=== PATIENT | female | born 1980 | race Caucasian/White ===

== ENCOUNTER 2016-12-04 09:55 | Emergency (ER) | payer OTHER ==
[2016-12-04 10:47] VITALS: BP 132/97
[2016-12-04] MEDS ORDERED: NS 0.9% 1000 ML* 1,000 ML IV ONE (10:49)
[2016-12-04] MEDS ORDERED: Ketorolac INJ* 30 MG/ML 1 ML VIAL IV PUSH ONE (10:49)
[2016-12-04 11:38] LABS: Hematocrit 39 % (35-47); Hemoglobin 13.1 g/dl (12.0-16.0); Mean Corpuscular HGB Conc 33 g/dl (31-36); Mean Corpuscular Hemoglobin 31 pg (27-31); Mean Corpuscular Volume 92 fL (80-97); Mean Platelet Volume 8 um3 (7.4-10.4); Red Blood Count 4.26 10^6/ul (4.0-5.4); Red Cell Distribution Width 14 % (10.5-15); White Blood Count 4.1 10^3/ul (3.5-10.8)
[2016-12-04 11:42] LABS: Manual Entry Verification JEA0012; UR Preg Internal Control QC Line Present
[2016-12-04 11:50] LABS: Urine Bilirubin Negative (Negative); Urine Glucose Negative (Negative); Urine Nitrite Negative (Negative)
[2016-12-04 11:52] LABS: Albumin 3.9 g/dL (3.2-5.2); BUN/Creatinine Ratio 18.2 (8-20); EGFR African American 109.1 (>60); EGFR Non-African American 84.8 (>60); Globulin 2.8 g/dL (2-4); Potassium 3.6 mmol/L (3.5-5.0); Total Bilirubin 0.7 mg/dL (0.2-1.0); Total Protein 6.7 g/dL (6.4-8.9)
--- NOTE | 2016-12-04 12:19 | RAD ---
Indication: Hematuria. Real-time sonography of the kidneys was performed. The right kidney measures 10.1 x 5.9 x 5.4 cm. No hydronephrosis is noted. Echogenic foci is noted in the lower pole of the right kidney measuring up to 3 mm. The left kidney measures 11.5 x 5.1 x 4.5 cm with no hydronephrosis. Evaluation of the bladder demonstrates bilateral ureteral jets. IMPRESSION: Likely nonobstructing calculi in the lower pole of the right kidney. No hydronephrosis of either kidney is noted. Bilateral ureteral jets are present.
[2016-12-04 14:31] LABS: C Reactive Protein 3.73 mg/L (< 5.00)
--- NOTE | 2016-12-04 16:05 | RAD ---
INDICATION: Bilateral pelvic pain COMPARISON: Similar ultrasound examination dated October 07, [address] abdomen pelvis dated June 27, 2015 TECHNIQUE: Real-time transabdominal and transvaginal ultrasound examination of the female pelvis including grayscale and Doppler color flow imaging. FINDINGS: Uterus: The uterus is normal in size and echogenicity measuring 9.7 x 4.8 x 7.5 cm. The endometrial stripe is smooth and uniform measuring 8 mm in thickness. At the mid-level myometrium there is a well-circumscribed uterine fibroid measuring 1.7 x 1.8 x 1.5 mm. Ovaries: The right and left ovary measure 5.8 x 2.6 x 3.9 cm and 3.2 x 2.6 x 2.8 cm, respectively. Normal arterial and venous waveforms are identified. In the right ovary there is an anechoic and avascular structure with concave margins measuring 3.1 x 1.2 x 2.1 cm that is most consistent with an involuting/collapsing follicle in a woman of this age. There is a small amount of free fluid in the cul-de-sac. IMPRESSION: 1. Sonographic findings could be compatible with recent ovulation. Please correlate to the stage of patient's menstrual cycle. 2. At the posterior myometrium there is a uterine fibroid measuring 1.7 x 1.8 x 1.5 cm that was not visualized on the October 07, 2010 ultrasound.
[2016-12-04] MEDS ORDERED: oxyCODONE/Acetamin 5/325 MG* TAB PO ONE (16:21)
[2016-12-04] MEDS ORDERED: Ondansetron TAB* 4 MG PO ONE (16:21)
--- NOTE | 2016-12-05 22:55 | ED ---
Geronimo Huang SooYoung, scribed for Natanael Hsu MD on 12/04/16 at 1042 . Abdominal Pain/Female - HPI Summary HPI Summary: A 36 y/o F presents with suprapubic abd pain onset today [employer]. Associated sx: diaphoresis, abd cramping, delayed ability to urinate, nausea since resolved. Denies hematuria, dysuria, vaginal discharge. Recent dx of UTI last week, with c /o R flank pain. Pt took her Bactrim and finished the course three days ago. She states no new sexual partners. Pert PMHx: urolithiasis. Pt reports nml menses, is two weeks out from next one. PCP is Dr. Caballero. - History of Current Complaint Chief Complaint: EDAbdPain Stated Complaint: ABD PAIN Time Seen by Provider: 12/04/16 10:01 Hx Obtained From: Patient Hx Last Menstrual Period: 4 wks ago Onset/Duration: Sudden Onset, Lasting Hours, Still Present Timing: Constant Severity Initially: Moderate Severity Currently: Severe Pain Intensity: 9 Pain Scale Used: 0-10 Numeric Location: Suprapubic Character: Cramping Associated Signs and Symptoms: Positive: Diaphoresis, Nausea - resolved, Other: - pos: delayed ability to urinate; neg: hematuria, dysuria,. Negative: Blood in Stool, Vaginal Discharge Allergies/Adverse Reactions: Allergies Allergy/AdvReac Type Severity Reaction Status Date / Time Codeine Allergy Intermediate Nausea And Verified 06/26/15 22:36 Vomiting Latex Allergy Intermediate Rash Verified 06/26/15 22:36 PMH/Surg Hx/FS Hx/Imm Hx Previously Healthy: No Cardiovascular History: Reports: Hx Hypertension - DC'd her own med 4 mos ago History: Reports: Hx Kidney Stones, Hx Renal Disease - Surgical History Surgery Procedure, Year, and Place: 4 C-sections; tubal ligation; tonsillectomy - Immunization History Date of Tetanus Vaccine: None Date of Influenza Vaccine: None Infectious Disease History: Denies: Traveled Outside the [place] in Last 30 Days - Family History Known Family History: Positive: Cardiac Disease Negative: Diabetes - Social History Occupation: Unemployed - HOMEMAKER Lives: With Family Alcohol Use: Occasionally Hx Substance Use: No Substance Use Type: Reports: None Hx Tobacco Use: Yes Smoking Status (MU): Light Every Day Tobacco Smoker Review of Systems Positive: Skin Diaphoresis. Negative: Fever, Chills Negative: Erythema Negative: Sore Throat Negative: Chest Pain Negative: Shortness Of Breath, Cough Positive: Abdominal Pain, Nausea - resolved. Negative: Vomiting Positive: other - pos: delayed ability to urinate. Negative: dysuria, discharge - vaginal, hematuria Negative: Myalgia, Edema Negative: Rash Neurological: Other - neg: dizziness All Other Systems Reviewed And Are Negative: Yes Physical Exam - Summary Physical Exam Summary: Constitutional: Well-developed, Well-nourished, Alert. (-) Distressed Skin: Warm, Dry HENT: Normocephalic; Atraumatic Eyes: Conjunctiva normal Neck: Musculoskeletal ROM normal neck. (-) JVD, (-) Stridor, (-) Tracheal deviation Cardio: Rhythm regular, rate normal, Heart sounds normal; Intact distal pulses; The pedal pulses are 2+ and symmetric. Radial pulses are 2+ and symmetric. (-) Murmur Pulmonary/Chest wall: Effort normal. (-) Respiratory distress, (-) Wheezes, (-) Rales Abd: Soft, (-) Distension, SUPRAPUBIC TENDERNESS Musculoskeletal: (-) Edema Lymph: (-) Cervical adenopathy Neuro: Alert, Oriented x3 Psych: Mood and affect Normal Triage Information Reviewed: Yes Vital Signs On Initial Exam: Initial Vitals Temp Pulse Resp BP Pulse Ox 97 F 83 19 146/82 100 12/04/16 09:56 12/04/16 09:56 12/04/16 09:56 12/04/16 09:56 12/04/16 09:56 Vital Signs Reviewed: Yes Diagnostics - Vital Signs Vital Signs Temp Pulse Resp BP Pulse Ox 12/04/16 10:16 98.3 F 80 16 136/87 100 12/04/16 09:56 97 F 83 19 146/82 100 - Laboratory Result Diagrams: 12/04/16 11:15 12/04/16 11:15 Lab Statement: Any lab studies that have been ordered have been reviewed, and results considered in the medical decision making process. - Ultrasound No standard instances Ultrasound Interpretation: Positive (See Comments) - IMPRESSION: Likely nonobstructing calculi in the lower pole of the right kidney. No hydronephrosis of either kidney is noted. Bilateral ureteral jets are present. Ultrasound Interpretation Completed By: Radiologist - Additional Comments Diagnostic Additional Comments: TRANSVAG U/S IMPRESSION, read by radiologist: 1. Sonographic findings could be compatible with recent ovulation. Please correlate to the stage of patient's menstrual cycle. 2. At the posterior myometrium there is a uterine fibroid measuring 1.7 x 1.8 x 1.5 cm that was not visualized on the October 07, 2010 ultrasound. Re-Evaluation - Re-Evaluation 1 Re-Evaluation Time: 14:10 Change: Improved Comment: Pt states more pain on L-side than R. Denies RLQ tenderness, no suggestion of appy. NURSE TEMO PRESENT FOR PELVIC DURING REEVAL. PELVIC EXAM FOUND BILATERAL ADNEXAL TENDERNESS, NML CERVIX, NO CERVICAL MOTION TENDERNESS. PELVIC CULTURE COLLECTED. 2 Re-Evaluation Time: 16:23 Change: Improved Comment: Pt states she is no longer tender. Will D/C home to follow up with [facility]. 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 Associated sx: diaphoresis, abd cramping, delayed ability to urinate, nausea since resolved. Denies hematuria, dysuria, vaginal discharge. Recent dx of UTI last week, with c/o R flank pain. Pt took her Bactrim and finished the course three days ago. She states no new sexual partners. Pert PMHx: urolithiasis. Pt given fluids and Toradol in ED. Lab results show elevated ALT and AST, elevated monocytes, decreased glucose and lymphocytes. UA results are nml. Renal U/S shows "Likely nonobstructing calculi in the lower pole of the right kidney. No hydronephrosis of either kidney is noted. Bilateral ureteral jets are present." Transvaginal U/S found "1. Sonographic findings could be compatible with recent ovulation. Please correlate to the stage of patient's menstrual cycle. 2. At the posterior myometrium there is a uterine fibroid measuring 1.7 x 1.8 x 1.5 cm that was not visualized on the October 07, 2010 ultrasound.". Will D/C home with Motrin, Tramadol, f/u with [facility]ST[facility] in the next few days. - Diagnoses Provider Diagnoses: Mittelschmerz, Uterine fibroid Discharge - Discharge Plan Condition: Stable Disposition: HOME Prescriptions: Ibuprofen TAB* [Motrin TAB* 600 MG] 600 mg PO Q6H PRN #40 tab PRN Reason: Pain - Moderate To Severe Ondansetron ODT TAB* [Zofran 4 MG Odt TAB*] 4 mg PO Q6H PRN #12 tab.odt PRN Reason: Nausea/Vomiting traMADol TAB* [Ultram*] 25 mg PO Q6HR PRN #12 tab MDD 4 PRN Reason: Pain - Moderate To Severe Patient Education Materials: Ibuprofen (By mouth), Tramadol (By mouth), Mittelschmerz (ED), Uterine Fibroids (ED) Referrals: Maris Salmeron MD [Medical Doctor] - 3 Days (Follow up with Dr. Salmeron, [facility] INST[facility], in the next few days.) Juan Cooper MD [Primary Care Provider] - Additional Instructions: Follow up with [facility]ST[facility] in the next few days. Return to the emergency department for changing or worsening or persistent symptoms. The documentation as recorded by the Geronimo mead SooYoung accurately reflects the service I personally performed and the decisions made by , Natanael Hsu MD.
== END 2016-12-04 17:08 | disposition home or self-care (01) ==
LOC: ED 09:55
DX: N94.0 Mittelschmerz (principal); D25.9 Leiomyoma of uterus, unspecified; R11.0 Nausea
CPT/HCPCS: 36415; 76775; 76830; 80053; 81003; 81025; 83605; 83690; 85025; 86140; 87480; 87510; 87661; 99283; A9270-GY; J1885

== ENCOUNTER 2017-05-06 19:48 | Emergency (ER) | payer OTHER ==
[2017-05-06] MEDS ORDERED: hydrOXYzine HCL TAB* 50 MG PO ONE (20:20)
[2017-05-06] MEDS ORDERED: predniSONE TAB* 20 MG PO ONE (20:20)
--- NOTE | 2017-05-06 20:26 | ED ---
Andrews Huang Thomas, scribed for Daniel Ash MD on 05/06/17 at 2024 . Skin Complaint - HPI Summary HPI Summary: The pt is a 36 y/o F presenting to the ED c/o an erythematous rash to her left upper medial arm that she first noticed today at 04:00. The pain is described as burning and pruritus. The pain is constant. The pain is rated 2/10. The patient has been measuring the rash with a ruler, and it has been growing progressively. In the ED, it measures about 10cm in diameter. Pt additionally c/ o a small rash on her left forearm. - History of Current Complaint Chief Complaint: EDRashSkinAbscess Time Seen by Provider: 05/06/17 20:08 Stated Complaint: RASH/LT ARM Hx Obtained From: Patient Hx Last Menstrual Period: 4 wks ago Onset/Duration: Started Hours Ago - today at 04:00, Still Present, Worse Since - progressively Timing: Constant Current Severity: Mild Pain Intensity: 2 Pain Scale Used: 0-10 Numeric Skin Location: Other: - Left arm Character: Pruritus, Pain Aggravating Symptom(s): Nothing Alleviating Symptom(s): Nothing - Allergy/Home Medications Allergies/Adverse Reactions: Allergies Allergy/AdvReac Type Severity Reaction Status Date / Time Codeine Allergy Intermediate Nausea And Verified 05/06/17 19:58 Vomiting Latex Allergy Intermediate Rash Verified 05/06/17 19:58 PMH/Surg Hx/FS Hx/Imm Hx Previously Healthy: No Endocrine/Hematology History: Denies: Hx Diabetes Cardiovascular History: Reports: Hx Hypertension - DC'd her own med 4 mos ago History: Reports: Hx Kidney Stones, Hx Renal Disease Musculoskeletal History: Denies: Hx Osteoporosis - Surgical History Surgery Procedure, Year, and Place: 4 C-sections; tubal ligation; tonsillectomy - Immunization History Date of Tetanus Vaccine: None Date of Influenza Vaccine: None Infectious Disease History: No Infectious Disease History: Denies: Traveled Outside the [place] in Last 30 Days - Family History Known Family History: Positive: Cardiac Disease Negative: Diabetes - Social History Alcohol Use: Occasionally Hx Substance Use: No Substance Use Type: Reports: None Hx Tobacco Use: Yes Smoking Status (MU): Light Every Day Tobacco Smoker Review of Systems Negative: Fever Positive: Other - Rash on left arm All Other Systems Reviewed And Are Negative: Yes Physical Exam - Summary Physical Exam Summary: VITAL SIGNS: Reviewed. GENERAL: Patient is a well-developed and nourished female who is lying comfortable in the stretcher. Patient is not in any acute respiratory distress. HEAD AND FACE: No signs of trauma. No ecchymosis, hematomas or skull depressions. No sinus tenderness. EYES: PERRLA, EOMI x 2, No injected conjunctiva, no nystagmus. EARS: Hearing grossly intact. Ear canals and tympanic membranes are within normal limits. MOUTH: Oropharynx within normal limits. NECK: Supple, trachea is midline, no adenopathy, no JVD, no carotid bruit, no c- spine tenderness, neck with full ROM. CHEST: Symmetric, no tenderness at palpation LUNGS: Clear to auscultation bilaterally. No wheezing or crackles. CVS: Regular rate and rhythm, S1 and S2 present, no murmurs or gallops appreciated. ABDOMEN: Soft, non-tender. No signs of distention. No rebound no guarding, and no masses palpated. Bowel sounds are normal. EXTREMITIES: FROM in all major joints, no edema, no cyanosis or clubbing. NEURO: Alert and oriented x 3. No acute neurological deficits. Speech is normal and follows commands. SKIN: Dry and warm. There is a small area of maculopapular rash on the patient' s left upper medial arm. There is also a small area on the left forearm. It is nontender and warm. Triage Information Reviewed: Yes Vital Signs On Initial Exam: Initial Vitals Temp Pulse Resp BP Pulse Ox 98 F 93 16 143/108 97 05/06/17 19:56 05/06/17 19:56 05/06/17 19:56 05/06/17 19:56 05/06/17 19:56 Vital Signs Reviewed: Yes - [place] Coma Scale Coma Scale Total: 15 Diagnostics - Vital Signs Vital Signs Temp Pulse Resp BP Pulse Ox 05/06/17 19:56 98 F 93 16 143/108 97 - Laboratory Lab Statement: Any lab studies that have been ordered have been reviewed, and results considered in the medical decision making process. Course/Dx - Course Assessment/Plan: The pt is a 36 y/o F presenting to the ED c/o an erythematous rash to her left upper medial arm that she first noticed today at 04:00. The pain is described as burning and pruritus. The pain is constant. The pain is rated 2/10. The patient has been measuring the rash with a ruler, and it has been growing progressively. In the ED, it measures about 10cm in diameter. Pt additionally c/o a small rash on her left forearm. The patient has a local allergic reaction. I treated this with antihistamines and steroids. - Diagnoses Provider Diagnoses: Local allergic reaction, Possible insect bite Discharge - Discharge Plan Condition: Stable Disposition: HOME Referrals: Frank Caballero MD [Primary Care Provider] - The documentation as recorded by the Andrews mead Thomas accurately reflects the service I personally performed and the decisions made by me, Daniel Ash MD.
[2017-05-06 20:58] VITALS: BP 143/107
== END 2017-05-06 20:59 | disposition home or self-care (01) ==
LOC: ED 19:48
DX: T78.40XA Allergy, unspecified, initial encounter (principal); Z72.0 Tobacco use; Z88.5 Allergy status to narcotic agent
CPT/HCPCS: A9270-GY; J7512

== ENCOUNTER 2017-06-13 19:15 | Emergency (ER) | payer OTHER ==
[2017-06-13 19:30] VITALS: BP 147/96
--- NOTE | 2017-06-13 19:44 | UC ---
Respiratory Complaint HPI - HPI Summary HPI Summary: Patient presents with three day onset cough, chest congestion and chest discomfort that occurs with the coughing. She denies any chest pain at any other time. She denies any dyspnea, weakness, diaphoresis. She denies any ear, throat, abdominal pain, nausea, vomiting, diarrhea, joint pain or rashes, recent travel or ill contact. s - History of Current Complaint Chief Complaint: UCGeneralIllness Stated Complaint: CONGESTION Time Seen by Provider: 06/13/17 19:25 Hx Obtained From: Patient Hx Last Menstrual Period: current ?: No Onset/Duration: Gradual Onset, Lasting Days Timing: Constant Severity Initially: Mild Severity Currently: Mild Character: Cough: Productive Aggravating Factors: Deep Breaths, Recumbent Position Alleviating Factors: Upright Position, Spontaneous Resolution Associated Signs And Symptoms: Positive: Pleuritic Chest Pain, URI, Nasal Congestion, Sinus Discomfort - Risk Factors Pulmonary Embolism Risk Factors: Negative Cardiac Risk Factors: Negative Pseudomonas Risk Factors: Negative Tuberculosis Risk Factors: Negative - Allergies/Home Medications Allergies/Adverse Reactions: Allergies Allergy/AdvReac Type Severity Reaction Status Date / Time Codeine Allergy Intermediate Nausea And Verified 06/13/17 19:30 Vomiting Latex Allergy Intermediate Rash Verified 06/13/17 19:30 Home Medications: Home Medications Gabapentin [Neurontin 800 mg tab] 800 mg PO TID 06/13/17 [History Confirmed ] Ramipril CAP* [Altace CAP*] 5 mg PO DAILY 06/13/17 [History Confirmed 06/13/17] Sertraline* [Zoloft*] 50 mg PO DAILY 06/13/17 [History Confirmed 06/13/17] PMH/Surg Hx/FS Hx/Imm Hx Previously Healthy: Yes - Surgical History Surgical History: Yes Surgery Procedure, Year, and Place: 4 C-sections; tubal ligation; tonsillectomy - Family History Known Family History: Positive: Cardiac Disease Negative: Diabetes - Social History Occupation: Employed Full-time Lives: Alone Alcohol Use: Occasionally Substance Use Type: None Smoking Status (MU): Light Every Day Tobacco Smoker - Immunization History Most Recent Influenza Vaccination: 2016 Review of Systems Constitutional: Negative Skin: Negative Eyes: Negative ENT: Ear Ache, Nasal Discharge, Sinus Congestion, Sinus Pain/Tenderness Respiratory: Negative Cardiovascular: Negative Gastrointestinal: Negative Genitourinary: Negative Motor: Negative Neurovascular: Negative Musculoskeletal: Negative Neurological: Negative Psychological: Negative Is Patient Immunocompromised?: No All Other Systems Reviewed And Are Negative: Yes Physical Exam Triage Information Reviewed: Yes Appearance: Ill-Appearing Vital Signs: Initial Vital Signs Temp 98.2 F 06/13/17 19:24 Pulse 79 06/13/17 19:24 Resp 22 06/13/17 19:24 BP 147/96 06/13/17 19:24 Pulse Ox 98 06/13/17 19:24 Vital Signs Reviewed: Yes Eye Exam: Normal ENT: Positive: Pharyngeal erythema, Nasal congestion, Nasal drainage, Sinus tenderness Neck exam: Normal Neck: Positive: 1 Respiratory Exam: Normal Respiratory: Positive: Rhonchi, Other: - persistent course coughing noted on exam . Cardiovascular Exam: Normal Cardiovascular: Positive: RRR, No Murmur Abdominal Exam: Normal Skin Exam: Normal UC Diagnostic Evaluation - Laboratory O2 Sat by Pulse Oximetry: 98 Respiratory Course/Dx - Course Course Of Treatment: Patient presents with three day onset progressively worsening cough, chest congestion and reproducible chest pain that only occurs when she coughs. She presents with VSS, nontoxic appearance, and in no significant respiratory distess other than coughing. She presents clincially with acute bronchitis, and was treated with augmentin, albuerol, and tesselon perles. I have taken her out of work for three days to rest and hopfully recover if for any reason she has nt ot improved as anticiapted I told her to betsy wasserman with her PCP, she verbalzied understanding and was in agreement with the discharge plan. - Differential Dx/Diagnosis Differential Diagnosis/HQI/PQRI: Bronchitis Provider Diagnoses: bronchitis Discharge - Discharge Plan Condition: Stable Disposition: HOME Prescriptions: Albuterol HFA INHALER* [Ventolin HFA Inhaler*] 1 puff INH Q4H PRN #1 mdi PRN Reason: bronchitis Amoxicillin/Clavulanate TAB* [Augmentin TAB 500 mg*] 500 mg PO BID #20 tab Benzonatate [TESSALON 200 MG CAP] 200 mg PO TID #14 cap Patient Education Materials: Acute Bronchitis (ED) Forms: *Work Release Referrals: Frank Caballero MD [Primary Care Provider] -
== END 2017-06-13 19:47 | disposition home or self-care (01) ==
LOC: UCEAST 19:15
DX: J40 Bronchitis, not specified as acute or chronic (principal); F17.290 Nicotine dependence, other tobacco product, uncomplicated; Z88.5 Allergy status to narcotic agent; Z91.040 Latex allergy status
CPT/HCPCS: 99212; G0463

== ENCOUNTER 2017-07-07 10:10 | Emergency (ER) | payer OTHER ==
[2017-07-07] MEDS ORDERED: NS 0.9% 1000 ML* 1,000 ML IV ONE (11:10)
[2017-07-07] MEDS ORDERED: Ondansetron INJ* 2 MG/ML VIAL IV ONE (11:10)
--- NOTE | 2017-07-07 11:18 | ED ---
Abdominal Pain/Female - HPI Summary HPI Summary: (1 ectopic) pt here w/ diffuse ab soreness/cramping x 5 days. Started on Sunday with cramping - had nausea, diarrhea, subjective fevers - has only had 1 x vomiting. Sx seemed to improve 2 days ago however returned again yesterday and reports she was "moaning" in bed all night in discomfort. Pain and nausea w / standing/walking around. Has some chest pain with deep breath intermittently as well - denies SOB, cough, rhinorrhea, ST, otalgia, WATSON, neck pain/stiffness, rash. No urinary or vaginal sx. Son at home has had vomiting last Sunday - resolved. Pt received influenza vaccine. LMP - on this now - does not feel cramps today are same as menstrual cramps. H/ o tubal ligation and 4 c-sections. Sexually active - unprotected - 1 partner - no concerns for STD's at this time. - History of Current Complaint Chief Complaint: EDAbdPain Stated Complaint: CRAMPS Time Seen by Provider: 07/07/17 10:42 Hx Obtained From: Patient Hx Last Menstrual Period: current Pain Intensity: 8 Allergies/Adverse Reactions: Allergies Allergy/AdvReac Type Severity Reaction Status Date / Time Codeine Allergy Intermediate Nausea And Verified 06/13/17 19:30 Vomiting Latex Allergy Intermediate Rash Verified 06/13/17 19:30 PMH/Surg Hx/FS Hx/Imm Hx Previously Healthy: Yes Endocrine/Hematology History: Denies: Hx Anticoagulant Therapy, Hx Blood Disorders, Hx Diabetes, Hx Thyroid Disease, Hx Anemia, Autoimmune Disease Cardiovascular History: Reports: Hx Hypertension - takes ramipril daily Respiratory History: Denies: Hx Asthma GI History: Denies: Hx Cirrhosis, Hx Crohn's Disease, Hx Diverticulosis, Hx Gall Bladder Disease, Hx Gastroesophageal Reflux Disease, Hx Gastrointestinal Bleed, Hx Hiatal Hernia, Hx Irritable Bowel, Hx Ulcer History: Reports: Hx Kidney Stones, Hx Renal Disease Musculoskeletal History: Denies: Hx Osteoporosis Sensory History: Reports: Hx Contacts or Glasses Opthamlomology History: Reports: Hx Contacts or Glasses - Surgical History Surgery Procedure, Year, and Place: 4 C-sections; tubal ligation; tonsillectomy - Immunization History Date of Tetanus Vaccine: None Date of Influenza Vaccine: None Infectious Disease History: No Infectious Disease History: Denies: Traveled Outside the [place] in Last 30 Days - Family History Known Family History: Positive: Cardiac Disease Negative: Diabetes - Social History Alcohol Use: Occasionally Hx Substance Use: No Substance Use Type: Reports: None Hx Tobacco Use: Yes Smoking Status (MU): Light Every Day Tobacco Smoker Review of Systems Positive: Fever Eyes: Negative ENT: Negative Cardiovascular: Negative Respiratory: Negative Positive: Abdominal Pain, Diarrhea, Nausea Positive: see HPI Musculoskeletal: Negative Skin: Negative Neurological: Negative Psychological: Normal All Other Systems Reviewed And Are Negative: Yes Physical Exam Triage Information Reviewed: Yes Vital Signs On Initial Exam: Initial Vitals Temp Pulse Resp BP Pulse Ox 98.0 F 73 17 176/100 100 07/07/17 10:12 07/07/17 10:12 07/07/17 10:12 07/07/17 10:12 07/07/17 10:12 Vital Signs Reviewed: Yes Appearance: Positive: Well-Appearing, No Pain Distress, Well-Nourished Skin: Positive: Warm, Skin Color Reflects Adequate Perfusion, Dry Head/Face: Positive: Normal Head/Face Inspection Eyes: Positive: Normal, EOMI, Conjunctiva Clear - anicteric sclera ENT: Positive: Normal ENT inspection, Hearing grossly normal, Pharynx normal - mucosa moist. Negative: Nasal congestion, Nasal drainage Neck: Positive: Supple, Nontender - no gross thyromegaly Respiratory/Lung Sounds: Positive: Clear to Auscultation, Breath Sounds Present. Negative: Rales, Rhonchi, Wheezes Cardiovascular: Positive: Normal, RRR, S1, S2 Abdomen Description: Positive: Nontender, No Organomegaly, Soft, Distended - RLQ. Negative: CVA Tenderness (R), CVA Tenderness (L), Guarding Bowel Sounds: Positive: Present Musculoskeletal: Positive: Normal, Strength/ROM Intact Neurological: Positive: Normal, Sensory/Motor Intact, Alert, Oriented to Person Place, Time, CN Intact II-III Psychiatric: Positive: Normal - CONCERNED BUT COOPERATIVE - Diane Coma Scale Coma Scale Total: 15 Diagnostics - Vital Signs Vital Signs Temp Pulse Resp BP Pulse Ox 07/07/17 10:12 98.0 F 73 17 176/100 100 - Laboratory Result Diagrams: 07/07/17 11:15 07/07/17 11:15 Lab Statement: Any lab studies that have been ordered have been reviewed, and results considered in the medical decision making process. Re-Evaluation - Re-Evaluation First Eval Change: Improved - pain reduced - no nausea since here Abdominal Pain Fem Course/Dx - Course Course Of Treatment: Pt presents w/ ab cramping after 5 days of N/V/D. Inproved w/ IVF and zofran and labs indicate she's most likely recently fought an infection. She will be d/c'd w/ dietary guidelines and danger s/sx of when to return to ED. Pt agrees w/ plan. - Diagnoses Provider Diagnoses: Gastroenteritis, Abdominal cramping Discharge - Discharge Plan Condition: Stable Disposition: HOME Patient Education Materials: Gastroenteritis (ED), Dehydration (ED) Forms: *Work Release Referrals: Frank Caballero MD [Primary Care Provider] - Additional Instructions: Rest, fluids, bland diet (ie. water, gatorade, broth - bananas, rice, applesauce , toast) If symptoms return in full effect and/or you develop fever, chills, chest pain, shortness of breath, vaginal symtpoms or pelvic pain, return to ED Otherwise, follow-up with PCP as needed
[2017-07-07 11:29] LABS: ABS Basophils 0 10^3/ul (0-0.2); ABS Eosinophils 0 10^3/ul (0-0.6); ABS Lymphocytes 0.4 10^3/ul (1.0-4.8); ABS Monocytes 0.3 10^3/ul (0-0.8); ABS Neutrophils 1.8 10^3/ul (1.5-7.7); ABS Nucleated RBC 0 10^3/ul; Eosinophil % 0.4 % (0-6); Hematocrit 40 % (35-47); Hemoglobin 13.8 g/dl (12.0-16.0); Lymphocyte % 14.7 % (25-47); Mean Corpuscular HGB Conc 34 g/dl (31-36); Mean Corpuscular Hemoglobin 33 pg (27-31); Mean Corpuscular Volume 95 fL (80-97); Mean Platelet Volume 7 um3 (7.4-10.4); Nucleated Red Blood Cells % 0.2; Platelet Count 145 10^3/ul (150-450); Red Blood Count 4.24 10^6/ul (4.0-5.4); Red Cell Distribution Width 13 % (10.5-15); White Blood Count 2.6 10^3/ul (3.5-10.8)
[2017-07-07 11:46] LABS: EGFR Non-African American 92.6 (>60)
[2017-07-07 14:05] VITALS: BP 120/83
== END 2017-07-07 14:04 | disposition home or self-care (01) ==
LOC: ED 10:10
DX: R10.9 Unspecified abdominal pain (principal); R19.7 Diarrhea, unspecified; R11.0 Nausea; F17.210 Nicotine dependence, cigarettes, uncomplicated; K52.9 Noninfective gastroenteritis and colitis, unspecified
CPT/HCPCS: 36415; 80053; 83605; 83690; 83735; 84702; 85025; 86140; 87502; 96361; 96374; 99283; J2405

== ENCOUNTER 2017-08-04 03:37 | Emergency (ER) | payer SELFPAY ==
[2017-08-04] MEDS ORDERED: ALPRAZolam TAB* 0.5 MG PO ONE (03:58)
[2017-08-04 05:00] LABS: ABS Basophils 0 10^3/ul (0-0.2); ABS Eosinophils 0 10^3/ul (0-0.6); ABS Lymphocytes 1.1 10^3/ul (1.0-4.8); ABS Monocytes 0.5 10^3/ul (0-0.8); ABS Neutrophils 3.3 10^3/ul (1.5-7.7); ABS Nucleated RBC 0 10^3/ul; Eosinophil % 0.1 % (0-6); Hematocrit 44 % (35-47); Lymphocyte % 22.5 % (25-47); Mean Corpuscular HGB Conc 34 g/dl (31-36); Mean Corpuscular Hemoglobin 32 pg (27-31); Mean Corpuscular Volume 95 fL (80-97); Mean Platelet Volume 7 um3 (7.4-10.4); Nucleated Red Blood Cells % 0.1; Platelet Count 183 10^3/ul (150-450); Red Blood Count 4.64 10^6/ul (4.0-5.4); Red Cell Distribution Width 13 % (10.5-15); White Blood Count 4.9 10^3/ul (3.5-10.8)
[2017-08-04 05:15] LABS: EGFR Non-African American 84.4 (>60)
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
[2017-08-04 06:19] VITALS: BP 111/67
[2017-08-04] MEDS ORDERED: Ondansetron ODT TAB* 4 MG PO ONE (08:18)
[2017-08-04] MEDS ORDERED: Acetaminophen ADULT LIQ* 650 MG/20.3 ML UDC PO ONE (08:19)
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
== END 2017-08-04 08:49 | disposition home or self-care (01) ==
LOC: ED 03:37
DX: F10.129 Alcohol abuse with intoxication, unspecified (principal); S80.212A Abrasion, left knee, initial encounter; S80.211A Abrasion, right knee, initial encounter; S50.312A Abrasion of left elbow, initial encounter; S50.311A Abrasion of right elbow, initial encounter; S60.512A Abrasion of left hand, initial encounter; S60.511A Abrasion of right hand, initial encounter; Y04.0XXA Assault by unarmed brawl or fight, initial encounter; Y92.039 Unspecified place in apartment as the place of occurrence of the external cause; Z88.5 Allergy status to narcotic agent
CPT/HCPCS: 36415; 80053; 80320; 80329; 84443; 84702; 85025; 99282; A9270-GY; G0480

== ENCOUNTER 2017-08-10 18:06 | Emergency (ER) | payer OTHER ==
[2017-08-10 18:47] VITALS: BP 114/79
--- NOTE | 2017-08-10 19:12 | UC ---
Skin Complaint HPI - HPI Summary HPI Summary: 37 yo WF presents with ?infection to right hand. She tells me that she fell on the pavement about 1 week ago and scraped her right knuckles in the process. She noticed over the last 2 days that two area at the base of her dorsal pinky and ring finger have been draining green discharge, are TTP, and are swollen. She has been keeping them covered and applying triple antibiotic ointment daily. Denies numbness, tingling, decreased ROM, or stiffness. - History of Current Complaint Chief Complaint: UCUpperExtremity Time Seen by Provider: 08/10/17 19:06 Stated Complaint: HAND COMPLAINT Hx Obtained From: Patient Hx Last Menstrual Period: 07/10/17 Onset/Duration: Sudden Onset Skin Exposure Onset/Duration: Days Ago Timing: Constant Onset Severity: Moderate Current Severity: Moderate Pain Intensity: 6 Pain Scale Used: 0-10 Numeric - Allergy/Home Medications Allergies/Adverse Reactions: Allergies Allergy/AdvReac Type Severity Reaction Status Date / Time codeine Allergy Nausea And Verified 08/04/17 08:19 Vomiting latex Allergy Rash Verified 08/04/17 08:19 Review of Systems Constitutional: Negative Skin: Other - wound right hand Respiratory: Negative Cardiovascular: Negative Motor: Negative Neurovascular: Negative Musculoskeletal: Negative Neurological: Negative Psychological: Negative All Other Systems Reviewed And Are Negative: Yes PMH/Surg Hx/FS Hx/Imm Hx Previously Healthy: Yes Psychological History: Anxiety Other History Of: Negative For: Anticoagulant Therapy - Surgical History Surgical History: Yes Surgery Procedure, Year, and Place: 4 C-sections; tubal ligation; tonsillectomy - Family History Known Family History: Positive: Cardiac Disease Negative: Diabetes - Social History Alcohol Use: Occasionally Substance Use Type: None Smoking Status (MU): Light Every Day Tobacco Smoker - Immunization History Most Recent Influenza Vaccination: 2017 Most Recent Tetanus Shot: 2 years ago Physical Exam Triage Information Reviewed: Yes Appearance: Well-Appearing, No Pain Distress, Well-Nourished Vital Signs: Initial Vital Signs Temp 98.2 F 08/10/17 18:43 Pulse 85 08/10/17 18:43 Resp 16 08/10/17 18:43 BP 114/79 08/10/17 18:43 Pulse Ox 99 08/10/17 18:43 Vital Signs Reviewed: Yes Neck: Positive: Supple, Nontender Respiratory: Positive: Lungs clear, Normal breath sounds, No respiratory distress Cardiovascular: Positive: RRR, No Murmur, Pulses Normal Musculoskeletal: Positive: Strength Intact - Right hand and all fingers, ROM Intact - Right hand and all fingers, No Edema - Right hand and all fingers Neurological: Positive: Alert, Other: - Sensations intact Right hand and all fingers Psychological: Positive: Age Appropriate Behavior Skin: Positive: Other - At the 4th and 5th MCP joint there are two ~4mm abrasions with green purulent discharge and crusting. TTP. Surrounding mild erythema. No streaking or edema. Course/Dx - Course Course Of Treatment: Abrasion to right hand appears to have become infected. Will cover her with augmentin. - Diagnoses Provider Diagnoses: Wound infection right hand Discharge - Discharge Plan Condition: Stable Disposition: HOME Prescriptions: Amoxicillin/Clavulanate TAB* [Augmentin TAB 875*] 875 mg PO BID #20 tab Fluconazole 100 MG TAB* [Diflucan 100 MG TAB*] 100 mg PO DAILY #1 tab Patient Education Materials: Wound Infection (DC) Forms: *Work Release Referrals: Frank Caballero MD [Primary Care Provider] - Additional Instructions: If you develop a fever, shortness of breath, chest pain, new or worsening symptoms - please call your PCP or go to the ED.
== END 2017-08-10 19:23 | disposition home or self-care (01) ==
LOC: UCEAST 18:06
DX: S60.511A Abrasion of right hand, initial encounter (principal); L08.9 Local infection of the skin and subcutaneous tissue, unspecified; W18.30XA Fall on same level, unspecified, initial encounter; Y93.9 Activity, unspecified; Y92.480 Sidewalk as the place of occurrence of the external cause; F41.9 Anxiety disorder, unspecified; Z88.5 Allergy status to narcotic agent; Z91.040 Latex allergy status; F17.210 Nicotine dependence, cigarettes, uncomplicated
CPT/HCPCS: 87070; 87205; 99212; G0463

== ENCOUNTER 2018-11-22 18:49 | Emergency (ER) | payer BC, OTHER ==
[2018-11-22] MEDS ORDERED: HYDROcodone/ACETAMIN 5-325 MG* 1 TAB PO ONE (19:10)
[2018-11-22] MEDS ORDERED: Ondansetron ODT TAB* 4 MG PO ONE (19:10)
--- NOTE | 2018-11-22 19:23 | ED ---
Lower Extremity - HPI Summary HPI Summary: 38 year old female presents with right foot injury today. She states that she was playing baseball and then rolling her ankle. She is pain over the fifth metatarsal. She is able to ambulate with pain. No numbness or tingling. No ankle pain or other injury. States she took some ibuprofen with no relief. - History of Current Complaint Chief Complaint: EDExtremityLower Stated Complaint: RT FOOT INJURY PER PT Time Seen by Provider: 11/22/18 19:03 Hx Last Menstrual Period: 07/10/17 Pain Intensity: 7 - Allergies/Home Medications Allergies/Adverse Reactions: Allergies Allergy/AdvReac Type Severity Reaction Status Date / Time codeine Allergy Nausea And Verified 11/22/18 19:00 Vomiting latex Allergy Rash Verified 11/22/18 19:00 Home Medications: Home Medications Atenolol TAB* [Tenormin TAB* 25 MG] 25 mg PO DAILY 11/22/18 [History Confirmed 11/22/18] hydrOXYzine HCL TAB* [Atarax 25 MG TAB*] 25 mg PO TID PRN 11/22/18 [History Confirmed 11/22/18] traMADol TAB* [Ultram*] 1 tab PO TID PRN 11/22/18 [History Confirmed 11/22/18] PMH/Surg Hx/FS Hx/Imm Hx Endocrine/Hematology History: Denies: Hx Anticoagulant Therapy, Hx Blood Disorders, Hx Diabetes, Hx Thyroid Disease, Hx Anemia Cardiovascular History: Reports: Hx Hypertension Respiratory History: Denies: Hx Asthma GI History: Denies: Hx Cirrhosis, Hx Crohn's Disease, Hx Diverticulosis, Hx Gall Bladder Disease, Hx Gastroesophageal Reflux Disease, Hx Gastrointestinal Bleed, Hx Hiatal Hernia, Hx Irritable Bowel, Hx Ulcer History: Reports: Hx Kidney Stones, Hx Renal Disease Musculoskeletal History: Denies: Hx Osteoporosis Sensory History: Reports: Hx Contacts or Glasses Opthamlomology History: Reports: Hx Contacts or Glasses - Surgical History Surgery Procedure, Year, and Place: 4 C-sections; tubal ligation; tonsillectomy - Immunization History Date of Tetanus Vaccine: None Date of Influenza Vaccine: None Infectious Disease History: No Infectious Disease History: Denies: Traveled Outside the [place] in Last 30 Days - Family History Known Family History: Positive: Cardiac Disease Negative: Diabetes - Social History Alcohol Use: Occasionally Hx Substance Use: No Substance Use Type: Reports: None Hx Tobacco Use: Yes Smoking Status (MU): Light Every Day Tobacco Smoker Review of Systems Negative: Fever Negative: Chest Pain Negative: Shortness Of Breath Positive: Myalgia - right foot pain All Other Systems Reviewed And Are Negative: Yes Physical Exam Triage Information Reviewed: Yes Vital Signs On Initial Exam: Initial Vitals Temp Pulse Resp BP Pulse Ox 97.5 F 83 15 131/93 100 11/22/18 18:58 11/22/18 18:58 11/22/18 18:58 11/22/18 18:58 11/22/18 18:58 Vital Signs Reviewed: Yes Appearance: Positive: Well-Appearing Skin: Positive: Warm, Dry Head/Face: Positive: Normal Head/Face Inspection Eyes: Positive: Normal, Conjunctiva Clear ENT: Positive: Pharynx normal Respiratory/Lung Sounds: Positive: Clear to Auscultation, Breath Sounds Present Cardiovascular: Positive: Normal, RRR Musculoskeletal: Positive: Limited @ - right foot, Edema Right - foot lateral, Other - good pulses, capillary refill<2 secs Neurological: Positive: Normal Psychiatric: Positive: Normal Diagnostics - Vital Signs Vital Signs Temp Pulse Resp BP Pulse Ox 11/22/18 18:58 97.5 F 83 15 131/93 100 - Laboratory Lab Statement: Any lab studies that have been ordered have been reviewed, and results considered in the medical decision making process. - Radiology foot Radiology Interpretation Completed By: ED Physician Summary of Radiographic Findings: no fracture Lower Extremity Course/Dx - Course Course Of Treatment: 38 year old female presents with right foot injury today. She states that she was playing baseball and then rolling her ankle. She is pain over the fifth metatarsal. She is able to ambulate with pain. No numbness or tingling. No ankle pain or other injury. States she took some ibuprofen with no relief. On exam edema noted to the lateral aspect of right foot. Nontender ankle. Neurovascular intact. X-ray read by me as normal. gave donell and crutches. explained xrays will be re-read in morning if missed something. told follow up with primary. patient understand and agrees with plan. - Diagnoses Differential Diagnosis/HQI/PQRI: Positive: Fracture (Closed), Sprain, Strain Provider Diagnoses: Right foot injury Discharge - Sign-Out/Discharge Documenting (check all that apply): Patient Departure Patient Received Moderate/Deep Sedation with Procedure: No - Discharge Plan Condition: Good Disposition: HOME Patient Education Materials: Foot Sprain (ED) Forms: *Work Release Referrals: Frank Caballero MD [Medical Doctor] - Additional Instructions: Wear hard sole shoes Ice, elevate, use donell on the area Take Tylenol or ibuprofen for pain every 6 hours as needed Follow up with primary if no improvement Return to ED if develop or any new or worsening symptoms - Billing Disposition and Condition Condition: GOOD Disposition: Home
[2018-11-22 20:09] VITALS: BP 131/90
== END 2018-11-22 20:08 | disposition home or self-care (01) ==
LOC: ED 18:49
DX: S99.921A Unspecified injury of right foot, initial encounter (principal); X50.9XXA Other and unspecified overexertion or strenuous movements or postures, initial encounter; X50.0XXA Overexertion from strenuous movement or load, initial encounter; Y93.64 Activity, baseball; Y92.9 Unspecified place or not applicable; F17.210 Nicotine dependence, cigarettes, uncomplicated; Z87.442 Personal history of urinary calculi; Z88.6 Allergy status to analgesic agent
CPT/HCPCS: 99282; A9270-GY

== ENCOUNTER 2019-03-29 07:48 | Emergency (ER) | payer BC ==
--- NOTE | 2019-03-29 08:15 | ED ---
Abdominal Pain/Female - HPI Summary HPI Summary: 38 year old F presenting to [facility] complains of left abdominal pain, left flank pain, and bladder pain described as long waves of cramping since waking up at 04 :00 today 03/29/19. Patient states she urinated this morning [employer]. She denies dysuria. The patient rates the pain 8/10 in severity. Symptoms aggravated by nothing. Symptoms alleviated by heat. Hx kidney stones. - History of Current Complaint Chief Complaint: EDAbdPain Stated Complaint: ABD PAIN PER PT Time Seen by Provider: 03/29/19 08:04 Hx Obtained From: Patient Onset/Duration: Lasting Hours - 4, Still Present Timing: Constant Severity Currently: Severe Pain Intensity: 8 Pain Scale Used: 0-10 Numeric Location: Discrete At: LUQ, Discrete At: LLQ, Flank - left Character: Cramping Aggravating Factor(s): Nothing Alleviating Factor(s): Other: - heat Associated Signs and Symptoms: Positive: Negative - dysuria Allergies/Adverse Reactions: Allergies Allergy/AdvReac Type Severity Reaction Status Date / Time codeine Allergy Mild Nausea And Verified 03/29/19 11:14 Vomiting latex Allergy Mild Rash Verified 03/29/19 11:14 Home Medications: Home Medications Atenolol 50 mg PO DAILY 03/29/19 [History Confirmed 03/29/19] Cyclobenzaprine (NF) [Cyclobenzaprine 5 MG (NF)] 5 mg PO BID PRN 03/29/19 [ History Confirmed 03/29/19] Ibuprofen TAB* [Motrin TAB* 600 MG] 600 mg PO Q6H PRN 03/29/19 [History Confirmed 03/29/19] Tramadol HCl 50 mg PO Q6H PRN 03/29/19 [History Confirmed 03/29/19] PMH/Surg Hx/FS Hx/Imm Hx Endocrine/Hematology History: Denies: Hx Anticoagulant Therapy, Hx Blood Disorders, Hx Diabetes, Hx Thyroid Disease, Hx Anemia Cardiovascular History: Reports: Hx Hypertension Respiratory History: Denies: Hx Asthma GI History: Denies: Hx Cirrhosis, Hx Crohn's Disease, Hx Diverticulosis, Hx Gall Bladder Disease, Hx Gastroesophageal Reflux Disease, Hx Gastrointestinal Bleed, Hx Hiatal Hernia, Hx Irritable Bowel, Hx Ulcer History: Reports: Hx Kidney Stones, Hx Renal Disease Musculoskeletal History: Denies: Hx Osteoporosis Sensory History: Reports: Hx Contacts or Glasses Opthamlomology History: Reports: Hx Contacts or Glasses - Surgical History Surgery Procedure, Year, and Place: 4 C-sections; tubal ligation; tonsillectomy - Immunization History Date of Tetanus Vaccine: None Date of Influenza Vaccine: None Infectious Disease History: No Infectious Disease History: Denies: Traveled Outside the [place] in Last 30 Days - Family History Known Family History: Positive: Cardiac Disease Negative: Diabetes - Social History Alcohol Use: Occasionally Hx Substance Use: No Substance Use Type: Reports: None Hx Tobacco Use: Yes Smoking Status (MU): Light Every Day Tobacco Smoker Review of Systems Positive: Abdominal Pain - left Positive: flank pain - left, pain - bladder. Negative: dysuria All Other Systems Reviewed And Are Negative: Yes Physical Exam - Summary Physical Exam Summary: Appearance: The patient is well-nourished in no acute distress and in no acute pain. Skin: The skin is warm and dry, and skin color reflects adequate perfusion. HEENT: The head is normocephalic and atraumatic. The pupils are equal and reactive. The conjunctivae are clear and without drainage. Nares are patent and without drainage. Mouth reveals moist mucous membranes, and the throat is without erythema and exudate. The external ears are intact. The ear canals are patent and without drainage. The tympanic membranes are intact. Neck: The neck is supple with full range of motion and non-tender. There are no carotid bruits. There is no neck vein distension. Respiratory: Chest is non-tender. Lungs are clear to auscultation and breath sounds are symmetrical and equal. Cardiovascular: Heart is regular rate and rhythm. There is no murmur or rub auscultated. There is no peripheral edema and pulses are symmetrical and equal. Abdomen: The abdomen is soft and non-tender. There are normal bowel sounds heard in all four quadrants and there is no organomegaly palpated. Musculoskeletal: There is no back tenderness noted. Extremities are non-tender with full range of motion. There is good capillary refill. There is no peripheral edema or calf tenderness elicited. Neurological: Patient is alert and oriented to person, place and time. The patient has symmetrical motor strength in all four extremities. Cranial nerves are grossly intact. Deep tendon reflexes are symmetrical and equal in all four extremities. Psychiatric: The patient has an appropriate affect and does not exhibit any anxiety or depression. Triage Information Reviewed: Yes Vital Signs On Initial Exam: Initial Vitals Temp Pulse Resp BP Pulse Ox 97.1 F 82 16 134/93 100 03/29/19 07:56 03/29/19 07:56 03/29/19 07:56 03/29/19 07:56 03/29/19 07:56 Vital Signs Reviewed: Yes Procedures - Sedation Patient Received Moderate/Deep Sedation with Procedure: No Diagnostics - Vital Signs Vital Signs Temp Pulse Resp BP Pulse Ox 03/29/19 07:56 97.1 F 82 16 134/93 100 - Laboratory Result Diagrams: 03/29/19 08:40 03/29/19 08:40 Lab Statement: Any lab studies that have been ordered have been reviewed, and results considered in the medical decision making process. - CT Abd/Pel CT Interpretation Completed By: Radiologist Summary of CT Findings: 3 mm calculus in the distal left ureter with mild left hydronephrosis and hydroureter. No other masses or fluid collections are noted although evaluation is limited due to lack of IV and oral contrast. ED physician has reviewed this report. Re-Evaluation - Re-Evaluation First Eval Re-Evaluation Time: 10:40 Change: Improved Comment: patient feeling better after medications. she is agreeable to discharge Abdominal Pain Fem Course/Dx - Course Course Of Treatment: Ms. Saenz started with left flank pain early this AM. She was in no distress on arrival with stable vitals. She was gfound to have a 3 mm left UVJ stone with only microscopic hematuria. She was treated in the usual fashion and received good pain relief with ketorolac. - Diagnoses Provider Diagnoses: Kidney stone Discharge ED - Sign-Out/Discharge Documenting (check all that apply): Patient Departure - Discharge - Discharge Plan Condition: Stable Disposition: HOME Prescriptions: HYDROcodone/ACETAMIN 5-325 MG* [Herron 5-325 TAB*] 1 tab PO Q6H PRN #20 tab MDD 4 PRN Reason: Pain Ondansetron ODT TAB* [Zofran Odt TAB*] 4 mg PO Q6H PRN #20 tab.odt PRN Reason: Nausea/Vomiting Tamsulosin CAP* [Flomax CAP*] 0.4 mg PO DAILY #7 cap Patient Education Materials: Kidney Stones (ED) Referrals: Alfonso Shaver MD [Medical Doctor] - 2 Days Nancy Shearer MD [Primary Care Provider] - Additional Instructions: Use ibuprofen for the pain. Follow up with Dr. Shavre, urology, in 2-3 days. Return to the Emergency Department for new or worsening symptoms. - Billing Disposition and Condition Condition: STABLE Disposition: Home - Attestation Statements Document Initiated by Scribe: Yes Documenting Scribe: Caro Burrows Provider For Whom Scribe is Documenting (Include Credential): Les Geller MD Scribe Attestation: I, Caro Burrows, scribed for Les Geller MD on 03/29/19 at 1351. Scribe Documentation Reviewed: Yes Provider Attestation: The documentation as recorded by the Caro mead accurately reflects the service I personally performed and the decisions made by me, Les Geller MD Status of Scribe Document: Viewed
[2019-03-29 08:46] LABS: Urine Appearance Cloudy; Urine Bacteria Absent (Absent); Urine Bilirubin Negative (Negative); Urine Blood 3+ (Negative); Urine Color Amber; Urine Glucose Negative (Negative); Urine Ketones 1+ (Negative); Urine Nitrite Negative (Negative); Urine Protein 2+(100 mg/dL) (Negative); Urine Red Blood Cell 3+(>10/hpf) (Absent); Urine Specific Gravity 1.025 (1.010-1.030); Urine Squamous Epithelial Cell Present (Absent); Urine Urobilinogen Negative (Negative); Urine White Blood Cell 3+(>20/hpf) (Absent)
[2019-03-29 08:48] LABS: ABS Monocytes 0.6 10^3/ul (0-0.8); ABS Neutrophils 2.6 10^3/ul (1.5-7.7); Eosinophil % 0.9 %; Hematocrit 42 % (35-47); Hemoglobin 14.6 g/dL (12.0-16.0); Lymphocyte % 22.6 %; Mean Corpuscular HGB Conc 35 g/dL (31-36); Mean Corpuscular Hemoglobin 33 pg (27-31); Mean Corpuscular Volume 94 fL (80-97); Mean Platelet Volume 7.2 fL (7.4-10.4); Nucleated Red Blood Cells % 0.1; Platelet Count 235 10^3/uL (150-450); Red Cell Distribution Width 13 % (10-15); White Blood Count 4.3 10^3/uL (3.5-10.8)
[2019-03-29 09:08] LABS: ALT 21 U/L (7-52); AST 23 U/L (13-39); Albumin 4.5 g/dL (3.2-5.2); Albumin/Globulin Ratio 1.7 (1-3); Alkaline Phosphatase 66 U/L (34-104); Anion Gap 7 mmol/L (2-11); BUN/Creatinine Ratio 21.5 (8-20); Blood Urea Nitrogen 17 mg/dL (6-24); C Reactive Protein < 1.00 mg/L (<8.01); CO2 Carbon Dioxide 24 mmol/L (22-32); Calcium 10.7 mg/dL (8.6-10.3); Chloride 106 mmol/L (101-111); EGFR African American 98.6 (>60); EGFR Non-African American 81.4 (>60); Globulin 2.6 g/dL (2-4); Glucose 83 mg/dL (70-100); Potassium 3.5 mmol/L (3.5-5.0); Sodium 137 mmol/L (135-145); Total Protein 7.1 g/dL (6.4-8.9)
[2019-03-29] MEDS ORDERED: NS 0.9% 1000 ML** 1,000 ML IV ONE (09:09)
[2019-03-29] MEDS ORDERED: Ketorolac INJ* 30 MG/ML 1 ML VIAL IV PUSH ONE (09:09)
[2019-03-29 09:14] LABS: HCG Pregnancy < 0.60 mIU/mL
[2019-03-29] MEDS ORDERED: HYDROcodone/ACETAMIN 5-325 MG* 1 TAB PO ONE (10:58)
[2019-03-29] MEDS ORDERED: Ondansetron ODT TAB* 4 MG PO ONE (10:59)
[2019-03-29 11:10] VITALS: BP 126/86
--- NOTE | 2019-04-01 09:53 | ED ---
Imaging and Labs Follow Up Follow Up Type: Labs/Cultures Labs/Culture Result: Urine culture growing >100k gardnerella Patient Communication/Plan: Attempted to call pt. today at 0951 without answer. Message left to return call. Rx for flagyl sent to pharmacy. Will send letter. Provider Diagnoses: Kidney stone
== END 2019-03-29 11:00 | disposition home or self-care (01) ==
LOC: ED 07:48
DX: N13.2 Hydronephrosis with renal and ureteral calculous obstruction (principal); R31.29 Other microscopic hematuria; B96.89 Other specified bacterial agents as the cause of diseases classified elsewhere; Z87.442 Personal history of urinary calculi; I10 Essential (primary) hypertension; Z88.5 Allergy status to narcotic agent; Z91.040 Latex allergy status; F17.200 Nicotine dependence, unspecified, uncomplicated
CPT/HCPCS: 36415; 74176; 80053; 81003; 81015; 83605; 83690; 84702; 85025; 86140; 87077; 87086; 96374; 96375; 99283; A9270-GY; J1885

== ENCOUNTER 2019-04-03 23:17 | Emergency (ER) | payer BC ==
--- NOTE | 2019-04-03 23:32 | ED ---
Syncope/Near Syncope - HPI Summary HPI Summary: Patient complains of sudden onset 10 minute episode of chills, sweats, lightheadedness, almost passing out this evening. Denies history of same. Currently taking Flagyl for UTI, and waiting to pass 3 mm kidney stone. Denies that symptoms are related to pain, states mild discomfort only. Denies fever, cough, sore throat, CP, SOB, N/V/D, abdominal pain, change in urine, change in BM. Medical history is HTN, kidney stones with history of urethral stents. Denies smoking, EtOH, recreational drug use other than marijuana. States she is hydrating normally. - History Of Current Complaint Chief Complaint: EDSyncope Time Seen by Provider: 04/03/19 23:26 Hx Obtained From: Patient Onset/Duration: Sudden Onset, Lasting Minutes Timing: Minutes Context: Witnessed Activity At Onset: At Rest Associated Head Trauma: No Aggravating Factor(s): Nothing Alleviating Factor(s): Spontaneous Resolution Associated Signs And Symptoms: Lightheadedness - Allergies/Home Medications Allergies/Adverse Reactions: Allergies Allergy/AdvReac Type Severity Reaction Status Date / Time codeine Allergy Mild Nausea And Verified 03/29/19 11:14 Vomiting latex Allergy Mild Rash Verified 03/29/19 11:14 PMH/Surg Hx/FS Hx/Imm Hx Endocrine/Hematology History: Denies: Hx Anticoagulant Therapy, Hx Blood Disorders, Hx Diabetes, Hx Thyroid Disease, Hx Anemia Cardiovascular History: Reports: Hx Hypertension Respiratory History: Denies: Hx Asthma GI History: Denies: Hx Cirrhosis, Hx Crohn's Disease, Hx Diverticulosis, Hx Gall Bladder Disease, Hx Gastroesophageal Reflux Disease, Hx Gastrointestinal Bleed, Hx Hiatal Hernia, Hx Irritable Bowel, Hx Ulcer History: Reports: Hx Kidney Stones, Hx Renal Disease Musculoskeletal History: Denies: Hx Osteoporosis Sensory History: Reports: Hx Contacts or Glasses Opthamlomology History: Reports: Hx Contacts or Glasses EENT History: Denies: Hx Deafness Neurological History: Denies: Hx Dementia - Surgical History Surgery Procedure, Year, and Place: 4 C-sections; tubal ligation; tonsillectomy - Immunization History Date of Tetanus Vaccine: None Date of Influenza Vaccine: None Infectious Disease History: No Infectious Disease History: Denies: Traveled Outside the [place] in Last 30 Days - Family History Known Family History: Positive: Cardiac Disease Negative: Diabetes - Social History Alcohol Use: Occasionally Hx Substance Use: No Substance Use Type: Reports: None Hx Tobacco Use: Yes Smoking Status (MU): Light Every Day Tobacco Smoker Review of Systems Positive: Chills Eyes: Negative ENT: Negative Cardiovascular: Negative Respiratory: Negative Gastrointestinal: Negative Genitourinary: Negative Musculoskeletal: Negative Skin: Negative Neurological: Negative Psychological: Normal All Other Systems Reviewed And Are Negative: Yes Physical Exam Triage Information Reviewed: Yes Vital Signs On Initial Exam: Initial Vitals Temp Pulse Resp BP Pulse Ox 98 F 97 18 159/112 100 04/03/19 23:19 04/03/19 23:19 04/03/19 23:19 04/03/19 23:19 04/03/19 23:19 Vital Signs Reviewed: Yes Appearance: Positive: Well-Appearing Skin: Positive: Warm Head/Face: Positive: Normal Head/Face Inspection Eyes: Positive: Normal Neck: Positive: Supple Respiratory/Lung Sounds: Positive: Clear to Auscultation Cardiovascular: Positive: Normal Abdomen Description: Positive: Nontender Musculoskeletal: Positive: Normal Neurological: Positive: Normal Psychiatric: Positive: Normal AVPU Assessment: Alert - Diane Coma Scale Best Eye Response: 4 - Spontaneous Best Motor Response: 6 - Obeys Commands Best Verbal Response: 5 - Oriented Coma Scale Total: 15 Procedures - Sedation Patient Received Moderate/Deep Sedation with Procedure: No Diagnostics - Vital Signs Vital Signs Temp Pulse Resp BP Pulse Ox 04/03/19 23:19 98 F 97 18 159/112 100 - Laboratory Result Diagrams: 04/04/19 00:00 04/04/19 00:00 Lab Statement: Any lab studies that have been ordered have been reviewed, and results considered in the medical decision making process. Course/Dx Course Of Treatment: Patient complains of sudden onset 10 minute episode of chills, sweats, lightheadedness, almost passing out this evening. Denies history of same. Currently taking Flagyl for UTI, and waiting to pass 3 mm kidney stone. Denies that symptoms are related to pain, states mild discomfort only. Denies fever, cough, sore throat, CP, SOB, N/V/D, abdominal pain, change in urine, change in BM. Medical history is HTN, kidney stones with history of urethral stents. Denies smoking, EtOH, recreational drug use other than marijuana. States she is hydrating normally. BP 159/112. Vital signs otherwise within normal limits. - Diagnoses Provider Diagnoses: Orthostatic hypotension Discharge ED - Sign-Out/Discharge Documenting (check all that apply): Patient Departure - Discharge Plan Condition: Stable Disposition: HOME Patient Education Materials: Dehydration (ED) Referrals: Nancy Shearer MD [Primary Care Provider] - Additional Instructions: Drink plenty of fluids to maintain hydration. Follow-up with primary care. Return to the ED for any worsening symptoms. - Billing Disposition and Condition Condition: STABLE Disposition: Home
[2019-04-03 23:56] LABS: Urine Appearance Cloudy; Urine Bacteria Absent (Absent); Urine Bilirubin Negative (Negative); Urine Blood Negative (Negative); Urine Color Yellow; Urine Glucose Negative (Negative); Urine Ketones Negative (Negative); Urine Nitrite Negative (Negative); Urine Protein Negative (Negative); Urine Red Blood Cell Absent (Absent); Urine Specific Gravity 1.018 (1.010-1.030); Urine Squamous Epithelial Cell Present (Absent); Urine Urobilinogen Negative (Negative); Urine White Blood Cell 1+(6-10/hpf) (Absent)
[2019-04-03] MEDS ORDERED: NS 0.9% 1000 ML** 1,000 ML IV ONE (23:58)
[2019-04-04 00:07] LABS: ABS Lymphocytes 1.3 10^3/ul (1.0-4.8); ABS Monocytes 0.4 10^3/ul (0-0.8); ABS Neutrophils 2.2 10^3/ul (1.5-7.7); Eosinophil % 0.9 %; Hematocrit 36 % (35-47); Hemoglobin 12.6 g/dL (12.0-16.0); Lymphocyte % 32.4 %; Mean Corpuscular HGB Conc 35 g/dL (31-36); Mean Corpuscular Hemoglobin 33 pg (27-31); Mean Corpuscular Volume 95 fL (80-97); Mean Platelet Volume 7.2 fL (7.4-10.4); Platelet Count 199 10^3/uL (150-450); Red Blood Count 3.85 10^6 /uL (3.70-4.87); Red Cell Distribution Width 13 % (10-15)
[2019-04-04 00:25] LABS: ALT 22 U/L (7-52); AST 25 U/L (13-39); Albumin/Globulin Ratio 1.6 (1-3); Alkaline Phosphatase 49 U/L (34-104); Anion Gap 3 mmol/L (2-11); BUN/Creatinine Ratio 16.5 (8-20); Blood Urea Nitrogen 13 mg/dL (6-24); C Reactive Protein < 1.00 mg/L (<8.01); CO2 Carbon Dioxide 27 mmol/L (22-32); Chloride 106 mmol/L (101-111); EGFR African American 98.6 (>60); EGFR Non-African American 81.4 (>60); Globulin 2.5 g/dL (2-4); Glucose 101 mg/dL (70-100); Potassium 3.8 mmol/L (3.5-5.0); Sodium 136 mmol/L (135-145); Total Protein 6.5 g/dL (6.4-8.9)
[2019-04-04 00:30] LABS: HCG Pregnancy < 0.60 mIU/mL
[2019-04-04 00:44] LABS: TSH (Thyroid Stimulating Horm) 2.27 mcIU/mL (0.34-5.60)
[2019-04-04 01:05] VITALS: BP 124/84
== END 2019-04-04 01:04 | disposition home or self-care (01) ==
LOC: ED 23:17
DX: I95.1 Orthostatic hypotension (principal); I10 Essential (primary) hypertension; F17.200 Nicotine dependence, unspecified, uncomplicated; Z87.442 Personal history of urinary calculi; Z79.899 Other long term (current) drug therapy; Z88.5 Allergy status to narcotic agent; Z91.040 Latex allergy status
CPT/HCPCS: 36415; 80053; 81003; 81015; 84443; 84702; 85025; 86140; 87086; 93005; 96360; 99283